=== PATIENT | female | born 1995 ===

== ENCOUNTER 2016-11-18 09:07 | Emergency (ER) | payer OTHER ==
[2016-11-18 09:12] VITALS: BMI 23.6
[2016-11-18] MEDS ORDERED: Lidocaine 1% Inj (20ml) ONE (09:20)
[2016-11-18] MEDS ORDERED: Lidocaine 1% Inj (20ml) INFIL ONE (09:23)
[2016-11-18 10:17] VITALS: BP 110/78; PULSE 78; RESP 20; TEMP 97.6
[2016-11-18 10:19] VITALS: O2SAT 97
--- NOTE | 2016-11-18 10:19 | ED PDOC ---
Upper Extremity Pain/Injury Time Seen by Provider: 11/18/16 09:16 Chief Complaint (Nursing): Upper Extremity Problem/Injury Chief Complaint (Provider): Left middle finger LAC History Per: Patient History/Exam Limitations: no limitations Onset/Duration Of Symptoms: Hrs Current Symptoms Are (Timing): Still Present Severity: Mild Additional Complaint(s): Patient is a 21 year old female presenting to the ED complaining of left middle finger laceration sustained this morning. Patient reports she was cutting meat with sharp knife and sliced the tip of her left middle finger. Bleeding stopped prior to arrival and patient's tetanus is up to date. Patient reports mild pain. PMD: none Past Medical History Reviewed: Historical Data, Nursing Documentation, Vital Signs Vital Signs: Last Vital Signs Temp 98 F 11/18/16 09:10 Pulse 88 11/18/16 09:10 Resp BP 107/67 11/18/16 09:10 Pulse Ox 97 11/18/16 09:10 - Medical History PMH: No Chronic Diseases - Family History Family History: States: No Known Family Hx - Allergies Allergies/Adverse Reactions: Allergies Allergy/AdvReac Type Severity Reaction Status Date / Time No Known Allergies Allergy Verified 11/18/16 09:17 Review of Systems ROS Statement: Except As Marked, All Systems Reviewed And Found Negative Constitutional: Negative for: Fever Musculoskeletal: Positive for: Other (left middle finger lac with mild pain) Physical Exam - Reviewed Nursing Documentation Reviewed: Yes Vital Signs Reviewed: Yes - Physical Exam Appears: Positive for: Well, Non-toxic, No Acute Distress Head Exam: Positive for: ATRAUMATIC, NORMAL INSPECTION, NORMOCEPHALIC Skin: Positive for: Normal Color, Warm, DRY Extremity: Positive for: Normal ROM (full ROM to left DIP and PIP), Other (1.5 cm linear LAC on distal phalanx of left middle finger to the volar aspect no bleeding no foreign bodies nail is intact) Neurologic/Psych: Positive for: Alert, Oriented - ECG O2 Sat by Pulse Oximetry: 97 (RA) Pulse Ox Interpretation: Normal Medical Decision Making Medical Decision Making: Time: 9:20 Impression: Left middle finger LAC Plan: LAC Repair verbal consent obtained procedure was successful and patient is neurovascularly intact. Re-evaluation. Patient feels better. Discussed results and plan with patient who expresses understanding. Counseling was provided regarding the diagnosis and prognosis. All questions answered and there is agreement with the plan to discharge home with instructions. Patient stable for discharge. Return if symptoms persist or worsen. Scribe Attestation Documented by Sixto Dunn acting as a scribe for Mathew Panda MD. Provider Attestation: All medical record entries made by the Scribe were at my direction and personally dictated by me. I have reviewed the chart and agree that the record accurately reflects my personal performance of the history, physical exam, medical decision making, and the department course for this patient. I have also personally directed, reviewed, and agree with the discharge instructions and disposition. Disposition - Clinical Impression Clinical Impression: Laceration of finger of left hand - Patient ED Disposition Is Patient to be Admitted: No Counseled Patient/Family Regarding: Studies Performed, Diagnosis - Disposition Referrals: [facility] [place] [Outside] Disposition: Routine/Home Disposition Time: 10:15 Condition: GOOD Additional Instructions: Return to ED or follow up with your PCP for suture removal in 7-10 days. Instructions: Care For Your Stitches (ED), Laceration (ED) Laceration - Laceration Repair No standard instances Wound Length (In cm): 1.5 Description Of Wound: Linear Wound Cleansed With: Betadine Anesthesia: Lidocaine 1% Wound Closure: Suture Suture Technique And Material Used: Interrupted, Nylon (#5 non-absorbable) Wound Complexity: Simple
== END 2016-11-18 10:17 | disposition home or self-care (01) ==
LOC: H.ER 09:07
DX: S61.213A Laceration without foreign body of left middle finger without damage to nail, initial encounter (principal); W26.0XXA Contact with knife, initial encounter; Y92.000 Kitchen of unspecified non-institutional (private) residence as the place of occurrence of the external cause